=== PATIENT | male | born 1935 | race Caucasian/White ===

== ENCOUNTER 2021-07-16 16:30 | Emergency (ER) | payer MEDICARE, BC, MEDICAID ==
--- NOTE | 2021-07-16 17:03 | EDM.PDOC ---
ED HPI GENERAL MEDICAL PROBLEM - General Chief Complaint: Respiratory Problem Stated Complaint: SOB Time Seen by Provider: 07/16/21 16:53 Source of Information: Reports: Patient, RN Notes Reviewed History Limitations: Reports: No Limitations - History of Present Illness INITIAL COMMENTS - FREE TEXT/NARRATIVE: Patient is an 85-year-old male presenting to the emergency department with complaints of cough and shortness of breath. Reports this morning he developed cough which worsened somewhat throughout the day. After he has coughing episodes, he feels short of breath, however this is not necessarily abnormal for him. He feels like he has been warm today, but has not had documented fever. Denies any vomiting or diarrhea. He has been vaccinated for Covid. He has a history of congestive heart failure and COPD. He was seen at the clinic in [place] prior to coming here and received breathing treatments which he stated did help. They recommend he come here to be tested for Covid. Denies any chest pain. - Related Data Allergies Allergy/AdvReac Type Severity Reaction Status Date / Time Penicillins Allergy Cannot Verified 07/16/21 16:57 Remember Home Meds: Home Meds Aspirin [Halfprin] 81 mg PO DAILY 10/02/18 [History] Cholecalciferol (Vitamin D3) [Vitamin D3] 2,000 mg PO DAILY 10/02/18 [History] Fluticasone/Vilanterol [Breo Ellipta 100-25 MCG Inhalation Kit] 1 puff INH QAM 10/02/18 [History] Furosemide [Lasix] 20 mg PO DAILY 10/02/18 [History] Mometasone Furoate [Nasonex [place]] 2 spray INH DAILY PRN 10/02/18 [History] Montelukast [Singulair] 10 mg PO DAILY 10/02/18 [History] Multivit-Min/FA/Lycopen/Lutein [Centrum Silver Tablet] 1 tab PO DAILY 10/02/18 [History] Omeprazole 20 mg PO DAILY 10/02/18 [History] Pregabalin [Lyrica] 75 mg PO BID 10/02/18 [History] Rivastigmine [Exelon] 1 patch TOP QAM 10/02/18 [History] Sennosides/Docusate Sodium [Senna-Docusate Sodium Tablet] 1 tab PO DAILY 10/02/18 [History] Simvastain 20 mg PO BEDTIME 10/02/18 [History] SitaGLIPtin [Januvia] 100 mg PO DAILY 10/02/18 [History] Tamsulosin HCl 0.4 mg PO DAILY 10/02/18 [History] lisinopriL [Prinivil] 20 mg PO DAILY 10/02/18 [History] metFORMIN [Glucophage] 1,000 mg PO QPM 10/02/18 [History] Acetaminophen 500 mg PO BID 08/29/20 [History] Docusate Sodium [Colace] 100 mg PO BID PRN 08/29/20 [History] Psyllium [Metamucil] 1 dose PO ASDIRECTED 08/29/20 [History] Trospium [Sanctura] 20 mg PO DAILY 08/29/20 [History] Cefdinir 300 mg PO BID #6 capsule 09/01/20 [Rx] Past Medical History HEENT History: Reports: Hard of Hearing, Impaired Vision, Other (See Below) Other HEENT History: left ear surgery Cardiovascular History: Reports: High Cholesterol, Hypertension Respiratory History: Reports: Asthma, COPD, Pneumonia, Recurrent Gastrointestinal History: Reports: Chronic Constipation Genitourinary History: Reports: Prostate Disorder Neurological History: Reports: Alzheimers Disease Psychiatric History: Reports: Dementia Endocrine/Metabolic History: Reports: Diabetes, Type II, Obesity/BMI 30+ Oncologic (Cancer) History: Reports: Prostate Other Oncologic History: with seeds placed - Past Surgical History HEENT Surgical History: Reports: Other (See Below) Other HEENT Surgeries/Procedures: oral surgery Social & Family History - Family History Family Medical History: No Pertinent Family History - Tobacco Use Tobacco Use Status *Q: Never Tobacco User Second Hand Smoke Exposure: No - Caffeine Use Caffeine Use: Reports: Coffee - Recreational Drug Use Recreational Drug Use: No ED ROS GENERAL - Review of Systems Review Of Systems: See Below Constitutional: Reports: Fever. Denies: Chills, Weakness, Fatigue HEENT: Reports: No Symptoms Respiratory: Reports: Shortness of Breath, Cough. Denies: Pleuritic Chest Pain Cardiovascular: Reports: No Symptoms. Denies: Chest Pain Endocrine: Reports: No Symptoms GI/Abdominal: Reports: No Symptoms : Reports: No Symptoms Musculoskeletal: Reports: No Symptoms Skin: Reports: No Symptoms Neurological: Reports: No Symptoms Psychiatric: Reports: No Symptoms Hematologic/Lymphatic: Reports: No Symptoms Immunologic: Reports: No Symptoms ED EXAM, GENERAL - Physical Exam Exam: See Below Exam Limited By: No Limitations General Appearance: Alert, WD/WN, No Apparent Distress Respiratory/Chest: No Respiratory Distress, No Accessory Muscle Use, Chest Non- Tender, Other (Occasional scattered faint expiratory wheeze) Cardiovascular: Normal Peripheral Pulses, Regular Rate, Rhythm, No Edema, No Gallop, No JVD, No Murmur, No Rub GI/Abdominal: Normal Bowel Sounds, Soft, Non-Tender, No Organomegaly, No Dis tention, No Abnormal Bruit, No Mass Neurological: Alert, Oriented, CN II-XII Intact, Normal Cognition, Normal Gait, Normal Reflexes, No Motor/Sensory Deficits Psychiatric: Normal Affect, Normal Mood Skin Exam: Warm, Dry, Intact, Normal Color, No Rash #1 Interpretation EKG Date: 07/16/21 Time: 18:03 Rhythm: NSR Rate (Beats/Min): 62 [place]: Normal P-Wave: Present QRS: Normal QT: Normal [place]/PQ Interval: prolonged DADA Course - Vital Signs Last Recorded V/S: Last Vital Signs Temp 97.5 F 07/16/21 16:53 Pulse 77 07/16/21 16:53 Resp 18 07/16/21 16:53 BP 180/75 H 07/16/21 16:53 Pulse Ox 97 07/16/21 16:53 - Orders/Labs/Meds Orders: Active Orders 24 hr Category Date Time Status Chest 1V Frontal [CR] Stat Exams 07/16/21 17:03 Taken Labs: Laboratory Tests 07/16/21 07/16/21 07/16/21 Range/Units 17:03 17:50 17:50 WBC 6.42 (4.23-9.07) K/mm3 RBC 4.65 (4.63-6.08) M/mm3 Hgb 13.4 L (13.7-17.5) gm/dl Hct 39.8 L (40.1-51.0) % MCV 85.6 (79.0-92.2) fl MCH 28.8 (25.7-32.2) pg MCHC 33.7 (32.2-35.5) g/dl RDW Std Deviation 41.4 (35.1-43.9) fL Plt Count 227 (163-337) K/mm3 MPV 10.6 (9.4-12.3) fl Neut % (Auto) 69.6 H (34.0-67.9) % Lymph % (Auto) 15.7 L (21.8-53.1) % [place] % (Auto) 11.1 (5.3-12.2) % Eos % (Auto) 2.8 (0.8-7.0) Baso % (Auto) 0.3 (0.1-1.2) % Neut # (Auto) 4.47 (1.78-5.38) K/mm3 Lymph # (Auto) 1.01 L (1.32-3.57) K/mm3 [place] # (Auto) 0.71 (0.30-0.82) K/mm3 Eos # (Auto) 0.18 (0.04-0.54) K/mm3 Baso # (Auto) 0.02 (0.01-0.08) K/mm3 Sodium 135 L (136-145) mEq/L Potassium 4.3 (3.5-5.1) mEq/L Chloride 99 (98-107) mEq/L Carbon Dioxide 29 (21-32) mEq/L Anion Gap 11.3 (5-15) BUN 17 (7-18) mg/dL Creatinine 1.3 (0.7-1.3) mg/dL Est Cr Clr Drug Dosing 33.43 mL/min Estimated GFR (MDRD) 52 (>60) mL/min BUN/Creatinine Ratio 13.1 L (14-18) Glucose 178 H (70-99) mg/dL Calcium 9.1 (8.5-10.1) mg/dL Total Bilirubin 0.3 (0.2-1.0) mg/dL AST 9 L (15-37) U/L ALT 24 (16-63) U/L Alkaline Phosphatase 47 (46-116) U/L Troponin I (0.00-0.056) ng/mL C-Reactive Protein <0.2 (<1.0) mg/dL NT-Pro-B Natriuret Pep (0-450) pg/mL Total Protein 6.7 (6.4-8.2) g/dl Albumin 3.5 (3.4-5.0) g/dl Globulin 3.2 gm/dL Albumin/Globulin Ratio 1.1 (1-2) SARS-CoV-2 RNA ([facility]) Negative (NEGATIVE) 07/16/21 07/16/21 Range/Units 17:50 17:50 WBC (4.23-9.07) K/mm3 RBC (4.63-6.08) M/mm3 Hgb (13.7-17.5) gm/dl Hct (40.1-51.0) % MCV (79.0-92.2) fl MCH (25.7-32.2) pg MCHC (32.2-35.5) g/dl RDW Std Deviation (35.1-43.9) fL Plt Count (163-337) K/mm3 MPV (9.4-12.3) fl Neut % (Auto) (34.0-67.9) % Lymph % (Auto) (21.8-53.1) % [place] % (Auto) (5.3-12.2) % Eos % (Auto) (0.8-7.0) Baso % (Auto) (0.1-1.2) % Neut # (Auto) (1.78-5.38) K/mm3 Lymph # (Auto) (1.32-3.57) K/mm3 [place] # (Auto) (0.30-0.82) K/mm3 Eos # (Auto) (0.04-0.54) K/mm3 Baso # (Auto) (0.01-0.08) K/mm3 Sodium (136-145) mEq/L Potassium (3.5-5.1) mEq/L Chloride (98-107) mEq/L Carbon Dioxide (21-32) mEq/L Anion Gap (5-15) BUN (7-18) mg/dL Creatinine (0.7-1.3) mg/dL Est Cr Clr Drug Dosing mL/min Estimated GFR (MDRD) (>60) mL/min BUN/Creatinine Ratio (14-18) Glucose (70-99) mg/dL Calcium (8.5-10.1) mg/dL Total Bilirubin (0.2-1.0) mg/dL AST (15-37) U/L ALT (16-63) U/L Alkaline Phosphatase (46-116) U/L Troponin I < 0.017 (0.00-0.056) ng/mL C-Reactive Protein (<1.0) mg/dL NT-Pro-B Natriuret Pep 104 (0-450) pg/mL Total Protein (6.4-8.2) g/dl Albumin (3.4-5.0) g/dl Globulin gm/dL Albumin/Globulin Ratio (1-2) SARS-CoV-2 RNA ([facility]) (NEGATIVE) - Re-Assessments/Exams Free Text/Narrative Re-Assessment/Exam: 07/16/21 19:00 Hematology is unremarkable. Chest x-ray shows no acute abnormalities. Covid is negative. Patient is oxygenating upper 90s on room air. EKG shows normal sinus rhythm at 62 with no acute abnormalities. He states that he is feeling well at this time. We will discharge him home. Discharge instructions as documented. Departure - Departure Time of Disposition: 19:01 Disposition: Home, Self-Care 01 Condition: Good Clinical Impression: Shortness of breath - Discharge Information *PRESCRIPTION DRUG MONITORING PROGRAM REVIEWED*: No *COPY OF PRESCRIPTION DRUG MONITORING REPORT IN PATIENT NNAO: No Instructions: Shortness of Breath, Adult, [id number] Referrals: Neo kSy MD [Primary Care Provider] - Forms: ED Department Discharge Additional Instructions: You were seen in the emergency department today for cough and shortness of breath. Work-up included blood work, EKG, chest x-ray, and Covid test. Results of your work-up were found to be normal. You are likely suffering from viral illness. Recommend that you continue to use breathing treatments as needed. Take your medications as previously prescribed. If you experience any new or worsening symptoms of concern, please not hesitate to return to the emergency department for reevaluation. Sepsis Event Note (ED) - Focused Exam Vital Signs: Vital Signs Temp Pulse Resp BP Pulse Ox 07/16/21 16:53 97.5 F 77 18 180/75 H 97 - My Orders Last 24 Hours: My Active Orders 07/16/21 17:03 Chest 1V Frontal [CR] Stat - Assessment/Plan Last 24 Hours: My Active Orders 07/16/21 17:03 Chest 1V Frontal [CR] Stat
--- NOTE | 2021-07-17 07:41 | CR ---
Chest: Portable view of the chest was obtained. Comparison: Prior chest x-ray of 03/25/16. Heart size and mediastinum are within normal limits. Slight scarring is seen within the left lung base. Lungs otherwise are clear. Bony structures show nothing acute. Impression: 1. Nothing acute is seen on portable chest x-ray. Diagnostic code #1
== END 2021-07-16 20:02 | disposition home or self-care (01) ==
LOC: JD.ED 16:30
DX: R06.02 Shortness of breath (principal); E78.00 Pure hypercholesterolemia, unspecified; I10 Essential (primary) hypertension; J44.9 Chronic obstructive pulmonary disease, unspecified; E11.9 Type 2 diabetes mellitus without complications; E66.9 Obesity, unspecified; Z88.0 Allergy status to penicillin; Z79.82 Long term (current) use of aspirin; Z79.899 Other long term (current) drug therapy; Z20.822 Contact with and (suspected) exposure to COVID-19; Z68.43 Body mass index [BMI] 50.0-59.9, adult
CPT/HCPCS: 36415; 71045; 80053; 83880; 84484; 85025; 86140; 93005; 99285; U0002

== ENCOUNTER 2022-08-04 18:42 | Emergency (ER) | payer MEDICARE, BC, MEDICAID ==
[2022-08-04 20:41] LABS: ESTIMATED GFR 73 mL/min (>60)
[2022-08-04 20:58] LABS: CORONAVIRUS COVID-19 NAA NEGATIVE (NEGATIVE)
[2022-08-04] MEDS ORDERED: Ondansetron 4 MG/2 ML SDV IVPUSH ONE (21:58)
[2022-08-04] MEDS ORDERED: Sodium Chloride 0.9% 1,000 ML IV SCH (22:00)
[2022-08-04] MEDS ORDERED: Iopamidol 612 MG/ML 100 ML Bottle IVPUSH ONE (22:36)
== END 2022-08-05 00:53 | disposition home or self-care (01) ==
LOC: JD.ED 18:42
DX: R42 Dizziness and giddiness (principal); R10.9 Unspecified abdominal pain; R11.0 Nausea; E78.00 Pure hypercholesterolemia, unspecified; I10 Essential (primary) hypertension; E11.9 Type 2 diabetes mellitus without complications; Z79.899 Other long term (current) drug therapy; Z20.822 Contact with and (suspected) exposure to COVID-19
CPT/HCPCS: 0240U; 36415; 74177; 80053; 81001; 83735; 84443; 84484; 85025; 85379; 93005; 96361; 96374; 99284; J2405; J7030; Q9967

== ENCOUNTER 2024-06-14 13:19 | Inpatient (IN) | payer MEDICARE, BC, MEDICAID ==
[2024-06-14] MEDS ORDERED: Sodium Chloride 0.9% 10 ML Syringe FLUSH PRN (14:03)
[2024-06-14 14:43] LABS: BASOPHILS PERCENT AUTO 0.3 % (0.0-1.0); EOSINOPHILS ABSOLUTE AUTO 0.1 K/mm3 (0.0-0.4); HEMATOCRIT 35.2 % (42.0-52.0); HEMOGLOBIN 11.5 gm/dl (14.0-18.0); IMMATURE GRAN ABSOLUTE AUTO 0.03 K/mm3 (0.00-0.05); IMMATURE GRAN PERCENT AUTO 0.3 % (0.0-0.4); LYMPHOCYTES ABSOLUTE AUTO 1.3 K/mm3 (1.0-4.8); LYMPHOCYTES PERCENT AUTO 11.5 % (24.0-44.0); MEAN CORPUSCULAR HEMOGLOBIN 27.9 pg (28.0-32.0); MEAN CORPUSCULAR HGB CONC 32.7 g/dl (32.0-36.0); MEAN CORPUSCULAR VOLUME 85.4 fl (83.0-99.0); MEAN PLATELET VOLUME 11.6 fl (9.4-12.4); MONOCYTES ABSOLUTE AUTO 1.5 K/mm3 (0.0-0.8); MONOCYTES PERCENT AUTO 13.7 % (0.0-8.0); NEUTROPHILS ABSOLUTE AUTO 8.2 K/mm3 (1.8-7.7); NEUTROPHILS PERCENT AUTO 73.2 % (41.0-71.0); PLATELET COUNT,PLT 198 K/mm3 (150-400); RED BLOOD CELL COUNT 4.12 M/mm3 (4.52-5.90); WHITE BLOOD CELL COUNT,WBC 11.14 K/mm3 (3.9-11.3)
[2024-06-14 15:07] LABS: SLIDE REVIEW ABNORMAL SMEAR
[2024-06-14 15:12] LABS: LACTIC ACID 2.2 mmol/L (0.4-2.0)
[2024-06-14] MEDS: Albuterol/Ipratropium 3.0-0.5 MG/3 ML Neb Soln NEB ONE (15:12)
[2024-06-14] MEDS ORDERED: Sodium Chloride 0.9% 1,000 ML IV SCH (15:15)
[2024-06-14 15:16] LABS: A/G RATIO 0.8 (1-2); ALANINE AMINOTRANSFERASE,ALT 23 U/L (16-63); ALBUMIN 3.2 g/dl (3.4-5.0); ALKALINE PHOSPHATASE 59 U/L (46-116); ANION GAP 15.5 (5-15); ASPARTATE AMNIOTRANSFERASE,AST 14 U/L (15-37); BILIRUBIN TOTAL 0.5 mg/dL (0.2-1.0); BLOOD UREA NITROGEN,BUN 83 mg/dL (7-18); BUN/CREATININE RATIO 22.4 (14-18); CALCIUM 9.5 mg/dL (8.5-10.1); CARBON DIOXIDE,CO2 25 mEq/L (21-32); CHLORIDE,CL 100 mEq/L (98-107); CREATININE 3.7 mg/dL (0.7-1.3); EST CRCL DRUG DOSING (CG) 11.11 mL/min; ESTIMATED GFR 15 mL/min (>60); GLUCOSE RANDOM 141 mg/dL (70-99); POTASSIUM,K 4.5 mEq/L (3.5-5.1); SODIUM,NA 136 mEq/L (136-145)
[2024-06-14 15:23] LABS: C-REACTIVE PROTEIN > 25.00 mg/dL (<0.30)
[2024-06-14] MEDS: cefTRIAXone 2 GM in Sodium Chloride 0.9% 100 ML IV ONE (16:22)
[2024-06-14] MEDS ORDERED: Ondansetron 4 MG/2 ML SDV IV PRN (17:10)
[2024-06-14] MEDS ORDERED: oxyCODONE 5 MG Tab PO PRN (17:10)
[2024-06-14] MEDS ORDERED: Morphine 2 MG/ML SYRINGE IVPUSH PRN (17:10)
[2024-06-14] MEDS ORDERED: Naloxone 0.4 MG/ML SDV IVPUSH PRN (17:10)
[2024-06-14] MEDS ORDERED: Sennosides/Docusate Sodium 50-8.6 MG Tab PO PRN (17:10)
[2024-06-14] MEDS ORDERED: 50% Dextrose in Water 50 ML Syringe IVPUSH PRN (17:17)
[2024-06-14] MEDS: Sodium Chloride 0.9% 500 ML IV ONE (17:31)
[2024-06-14] MEDS: metroNIDAZOLE/Normal Saline 500 MG in Premix Bag 1 BAG IV SCH (18:07)
[2024-06-14] MEDS: Insulin Lispro 100 Unit/ML 3 ML KwikPen SUBCUT SCH (18:14)
[2024-06-14] MEDS: Lactated Ringers 1,000 ML IV SCH (18:23)
[2024-06-14] MEDS: Famotidine 20 MG/2 ML SDV IVPUSH SCH (22:39)
[2024-06-14] MEDS: Heparin Sodium 5,000 Units/ML Vial SUBCUT SCH (22:39)
[2024-06-15 04:50] LABS: BASOPHILS PERCENT AUTO 0.4 % (0.0-1.0); EOSINOPHILS ABSOLUTE AUTO 0.2 K/mm3 (0.0-0.4); EOSINOPHILS PERCENT AUTO 2.1 % (0.0-6.0); HEMATOCRIT 30.1 % (42.0-52.0); HEMOGLOBIN 9.9 gm/dl (14.0-18.0); IMMATURE GRAN ABSOLUTE AUTO 0.03 K/mm3 (0.00-0.05); IMMATURE GRAN PERCENT AUTO 0.4 % (0.0-0.4); LYMPHOCYTES PERCENT AUTO 12.4 % (24.0-44.0); MEAN CORPUSCULAR HEMOGLOBIN 27.7 pg (28.0-32.0); MEAN CORPUSCULAR HGB CONC 32.9 g/dl (32.0-36.0); MEAN CORPUSCULAR VOLUME 84.1 fl (83.0-99.0); MEAN PLATELET VOLUME 11.8 fl (9.4-12.4); MONOCYTES ABSOLUTE AUTO 1.2 K/mm3 (0.0-0.8); MONOCYTES PERCENT AUTO 14.6 % (0.0-8.0); NEUTROPHILS ABSOLUTE AUTO 5.8 K/mm3 (1.8-7.7); NEUTROPHILS PERCENT AUTO 70.1 % (41.0-71.0); PLATELET COUNT,PLT 186 K/mm3 (150-400); RED BLOOD CELL COUNT 3.58 M/mm3 (4.52-5.90); WHITE BLOOD CELL COUNT,WBC 8.23 K/mm3 (3.9-11.3)
[2024-06-15 05:18] LABS: A/G RATIO 0.8 (1-2); ALBUMIN 2.5 g/dl (3.4-5.0); ANION GAP 18.4 (5-15); BILIRUBIN TOTAL 0.4 mg/dL (0.2-1.0); BUN/CREATININE RATIO 23.9 (14-18); CALCIUM 8.6 mg/dL (8.5-10.1); CREATININE 3.3 mg/dL (0.7-1.3); EST CRCL DRUG DOSING (CG) 11.95 mL/min; MAGNESIUM 1.7 mg/dL (1.8-2.4); PHOSPHORUS 4.8 mg/dL (2.6-4.7); POTASSIUM,K 4.4 mEq/L (3.5-5.1); PROTEIN TOTAL,TP 5.7 g/dl (6.4-8.2)
[2024-06-15] MEDS: Magnesium Sulfate/Water 4 GM in Premix Bag 1 BAG IV ONE (11:08)
[2024-06-15] MEDS: cefTRIAXone 2 GM in Sodium Chloride 0.9% 100 ML IV SCH (15:37)
[2024-06-15] MEDS ORDERED: Psyllium Husk Powder Sugar Free 5.85 GM Packet PO PRN (19:45)
[2024-06-15] MEDS ORDERED: Albuterol 0.083% 2.5 MG/3 ML Neb Soln INH PRN (19:45)
[2024-06-15] MEDS ORDERED: Nystatin Topical Powder 15 GM Bottle TOP SCH (19:45)
[2024-06-15] MEDS ORDERED: Calcium Carbonate 500 MG Tab.Chew PO PRN (19:45)
[2024-06-15] MEDS ORDERED: Non-Formulary Medication 1 Each (Saliva Substitute Combo No.9 [Biotene] 1,000 ML Mouthwash PO PRN (19:45)
[2024-06-15] MEDS ORDERED: cefTRIAXone 2 GM in Sodium Chloride 0.9% 100 ML IV SCH (20:00)
[2024-06-15] MEDS: Montelukast 10 MG Tab PO SCH (20:11)
[2024-06-15] MEDS: atorvaSTATin 20 MG Tab PO SCH (20:11)
[2024-06-15] MEDS: Carboxymethylcellulose Sodium 1% Ophth Gel 15 ML Bottle EYEBOTH SCH (20:18)
[2024-06-16] MEDS: cefTRIAXone 2 GM in Sodium Chloride 0.9% 100 ML IV SCH ×2 (00:23→14:55)
[2024-06-16] MEDS: Acetaminophen 325 MG Tab PO PRN (03:25)
[2024-06-16 05:34] LABS: HEMATOCRIT 33.8 % (42.0-52.0); HEMOGLOBIN 11.2 gm/dl (14.0-18.0); MEAN CORPUSCULAR HEMOGLOBIN 27.9 pg (28.0-32.0); MEAN CORPUSCULAR HGB CONC 33.1 g/dl (32.0-36.0); MEAN CORPUSCULAR VOLUME 84.1 fl (83.0-99.0); MEAN PLATELET VOLUME 11.4 fl (9.4-12.4); PLATELET COUNT,PLT 210 K/mm3 (150-400); RED BLOOD CELL COUNT 4.02 M/mm3 (4.52-5.90); WHITE BLOOD CELL COUNT,WBC 8.29 K/mm3 (3.9-11.3)
[2024-06-16 05:51] LABS: ANION GAP 16.1 (5-15); BUN/CREATININE RATIO 22.5 (14-18); CREATININE 2.4 mg/dL (0.7-1.3); EST CRCL DRUG DOSING (CG) 16.43 mL/min; MAGNESIUM 2.7 mg/dL (1.8-2.4); POTASSIUM,K 4.1 mEq/L (3.5-5.1)
[2024-06-16] MEDS: Benzonatate 100 MG Cap PO PRN (07:58)
[2024-06-16] MEDS: Multivitamins with Minerals/Folic Acid/Lutein/Zeaxanth Tab PO SCH (08:00)
[2024-06-16] MEDS: Aspirin 81 MG Tab.EC PO SCH (08:00)
[2024-06-16] MEDS: Cholecalciferol (Vitamin D3) 25 MCG Tab PO SCH (08:04)
[2024-06-16] MEDS ORDERED: RIVASTIGMINE TD SCH (09:00)
[2024-06-16] MEDS: Formoterol/Mometasone 100-5 MCG 8.8 GM Inhaler IH SCH (09:03)
[2024-06-16] MEDS: Lisinopril 20 MG Tab PO SCH (11:34)
[2024-06-17 05:57] LABS: ANION GAP 13.7 (5-15); BUN/CREATININE RATIO 20.6 (14-18); CALCIUM 8.9 mg/dL (8.5-10.1); CREATININE 1.8 mg/dL (0.7-1.3); EST CRCL DRUG DOSING (CG) 21.91 mL/min; POTASSIUM,K 3.7 mEq/L (3.5-5.1)
[2024-06-17 09:23] LABS: APPEARANCE,URINE CLEAR (Clear); BILIRUBIN,URINE NEGATIVE (Negative); COLOR,URINE YELLOW (Yellow); GLUCOSE,URINE NEGATIVE (Negative); KETONES,URINE 1+ (Negative); LEUKOCYTE ESTERASE,URINE NEGATIVE (Negative); NITRITE,URINE NEGATIVE (Negative); OCCULT BLOOD,URINE NEGATIVE (Negative); PROTEIN,URINE 1+ (Negative); UROBILINOGEN,URINE 0.2 (0.2-1.0)
[2024-06-17] MEDS ORDERED: Furosemide 20 MG Tab PO SCH (10:00)
[2024-06-17 10:12] LABS: BACTERIA,URINE FEW /hpf (FEW); MUCUS,URINE FEW /hpf (FEW); RBC,URINE 0-5 /hpf (0-5); SQUAMOUS EPITHELIAL CELLS,UR 0-5 /hpf (0-5); WBC,URINE 0-5 /hpf (0-5)
[2024-06-17] MEDS ORDERED: Labetalol 100 MG/20 ML MDV IVPUSH PRN (14:22)
[2024-06-17] MEDS: Furosemide 40 MG Tab PO SCH (14:38)
[2024-06-17] MEDS: Potassium Chloride 20 MEQ Tab.ER PO ONE (14:38)
[2024-06-17] MEDS: hydrALAZINE 20 MG/ML SDV IVPUSH PRN (15:46)
[2024-06-17] MEDS ORDERED: Carboxymethylcellulose Sodium 1% Ophth Gel 15 ML Bottle EYEBOTH PRN (17:36)
[2024-06-17] MEDS: Melatonin 3 MG Tab PO PRN (22:11)
[2024-06-18 05:48] LABS: ANION GAP 16.6 (5-15); BUN/CREATININE RATIO 18.8 (14-18); CALCIUM 8.9 mg/dL (8.5-10.1); CREATININE 1.7 mg/dL (0.7-1.3); EST CRCL DRUG DOSING (CG) 23.2 mL/min; MAGNESIUM 2.1 mg/dL (1.8-2.4); POTASSIUM,K 3.6 mEq/L (3.5-5.1)
[2024-06-18] MEDS: Potassium Chloride 20 MEQ Tab.ER PO ONE (10:48)
[2024-06-18] MEDS: Empagliflozin 10 MG Tab PO SCH (10:48)
[2024-06-18] MEDS: Lisinopril 20 MG Tab PO STA (11:44)
[2024-06-18] MEDS: Nystatin Susp 100,000 Unit/ML 5 ML UD Cup PO SCH (12:22)
[2024-06-19 05:00] LABS: ANION GAP 19.9 (5-15); BUN/CREATININE RATIO 20.6 (14-18); CALCIUM 8.5 mg/dL (8.5-10.1); CREATININE 1.7 mg/dL (0.7-1.3); EST CRCL DRUG DOSING (CG) 23.2 mL/min; POTASSIUM,K 3.9 mEq/L (3.5-5.1)
[2024-06-19] MEDS: Dextrose 5% in Water 1,000 ML IV SCH (07:47)
[2024-06-19] MEDS: Lisinopril 20 MG Tab PO SCH (07:59)
[2024-06-19] MEDS: amLODIPine 5 MG Tab PO SCH (08:00)
[2024-06-19] MEDS: Formoterol/Mometasone 100-5 MCG 8.8 GM Inhaler IH SCH ×2 (08:10→20:47)
[2024-06-19] MEDS: Hydrochlorothiazide 12.5 MG Cap PO SCH (11:30)
[2024-06-19 11:38] LABS: ANION GAP 19.9 (5-15); BUN/CREATININE RATIO 21.1 (14-18); CALCIUM 9.4 mg/dL (8.5-10.1); CREATININE 1.8 mg/dL (0.7-1.3); EST CRCL DRUG DOSING (CG) 21.91 mL/min; POTASSIUM,K 3.9 mEq/L (3.5-5.1)
[2024-06-19 11:49] LABS: CREATININE,URINE RAND 85.8 mg/dL (30.0-125.0)
[2024-06-19 17:15] LABS: ANION GAP 14.5 (5-15); BUN/CREATININE RATIO 20.6 (14-18); CALCIUM 8.8 mg/dL (8.5-10.1); CREATININE 1.7 mg/dL (0.7-1.3); EST CRCL DRUG DOSING (CG) 23.2 mL/min; POTASSIUM,K 3.5 mEq/L (3.5-5.1)
[2024-06-19] MEDS: Hydrochlorothiazide 12.5 MG Cap PO ONE (17:16)
[2024-06-20 05:29] LABS: ANION GAP 16.1 (5-15); BUN/CREATININE RATIO 19.4 (14-18); CALCIUM 8.3 mg/dL (8.5-10.1); CREATININE 1.6 mg/dL (0.7-1.3); EST CRCL DRUG DOSING (CG) 24.65 mL/min; POTASSIUM,K 3.1 mEq/L (3.5-5.1)
[2024-06-20] MEDS: Hydrochlorothiazide 12.5 MG Cap PO SCH (08:25)
[2024-06-20 08:56] LABS: ANION GAP 14.1 (5-15); CALCIUM 8.6 mg/dL (8.5-10.1); CREATININE 1.5 mg/dL (0.7-1.3); EST CRCL DRUG DOSING (CG) 26.29 mL/min; POTASSIUM,K 3.1 mEq/L (3.5-5.1)
[2024-06-20] MEDS: Dextrose 5% in Water 1,000 ML IV SCH (09:29)
[2024-06-20 12:55] LABS: ANION GAP 13.5 (5-15); BUN/CREATININE RATIO 18.7 (14-18); CALCIUM 8.6 mg/dL (8.5-10.1); CREATININE 1.5 mg/dL (0.7-1.3); EST CRCL DRUG DOSING (CG) 26.29 mL/min; POTASSIUM,K 3.5 mEq/L (3.5-5.1)
[2024-06-20 17:18] LABS: ANION GAP 14.1 (5-15); BUN/CREATININE RATIO 16.7 (14-18); CALCIUM 8.3 mg/dL (8.5-10.1); CREATININE 1.5 mg/dL (0.7-1.3); EST CRCL DRUG DOSING (CG) 26.29 mL/min; POTASSIUM,K 3.1 mEq/L (3.5-5.1)
[2024-06-20] MEDS: Potassium Chloride 20 MEQ Tab.ER PO SCH (18:27)
[2024-06-20] MEDS: guaiFENesin 600 MG Tab.ER PO SCH (21:32)
[2024-06-21] MEDS: Dextrose 5% in Water 1,000 ML IV SCH (02:45)
[2024-06-21 06:02] LABS: ANION GAP 14.4 (5-15); BUN/CREATININE RATIO 16.2 (14-18); CREATININE 1.3 mg/dL (0.7-1.3); EST CRCL DRUG DOSING (CG) 30.33 mL/min; POTASSIUM,K 3.4 mEq/L (3.5-5.1)
[2024-06-21] MEDS: Potassium Chloride 20 MEQ Tab.ER PO ONE (08:58)
== END 2024-06-21 12:02 | disposition home or self-care (01) | DRG 177 ==
LOC: JD.ED 13:19 → JD.MS 17:03
PROVIDERS: ADMIT Student in an Organized Health Care Education/Training Program; ATTEND Student in an Organized Health Care Education/Training Program
DX: A41.9 Sepsis, unspecified organism (principal); R65.20 Severe sepsis without septic shock; J69.0 Pneumonitis due to inhalation of food and vomit; J96.01 Acute respiratory failure with hypoxia; I11.0 Hypertensive heart disease with heart failure; N17.9 Acute kidney failure, unspecified; F03.90 Unspecified dementia, unspecified severity, without behavioral disturbance, psychotic disturbance, mood disturbance, and anxiety; J44.0 Chronic obstructive pulmonary disease with (acute) lower respiratory infection; E11.9 Type 2 diabetes mellitus without complications; G93.49 Other encephalopathy; B37.0 Candidal stomatitis; E87.1 Hypo-osmolality and hyponatremia; I13.0 Hypertensive heart and chronic kidney disease with heart failure and stage 1 through stage 4 chronic kidney disease, or unspecified chronic kidney disease; E87.20 Acidosis, unspecified; Z66 Do not resuscitate; K21.00 Gastro-esophageal reflux disease with esophagitis, without bleeding; M41.9 Scoliosis, unspecified; N40.0 Benign prostatic hyperplasia without lower urinary tract symptoms; I50.9 Heart failure, unspecified; E11.42 Type 2 diabetes mellitus with diabetic polyneuropathy; E11.51 Type 2 diabetes mellitus with diabetic peripheral angiopathy without gangrene; H91.90 Unspecified hearing loss, unspecified ear; H54.7 Unspecified visual loss; E78.00 Pure hypercholesterolemia, unspecified; K59.09 Other constipation; G30.9 Alzheimer's disease, unspecified; F02.80 Dementia in other diseases classified elsewhere, unspecified severity, without behavioral disturbance, psychotic disturbance, mood disturbance, and anxiety; R13.10 Dysphagia, unspecified; I44.0 Atrioventricular block, first degree; E86.0 Dehydration; N18.9 Chronic kidney disease, unspecified; E11.22 Type 2 diabetes mellitus with diabetic chronic kidney disease; H53.2 Diplopia; R29.898 Other symptoms and signs involving the musculoskeletal system; I27.20 Pulmonary hypertension, unspecified; Z88.0 Allergy status to penicillin; Z85.46 Personal history of malignant neoplasm of prostate; Z79.82 Long term (current) use of aspirin; Z79.899 Other long term (current) drug therapy; Z79.84 Long term (current) use of oral hypoglycemic drugs; Z86.16 Personal history of COVID-19; Z98.890 Other specified postprocedural states
CPT/HCPCS: 36415; 70450; 71045; 80053; 83605; 83880; 85025; 86140; 87040 ×2; 93005; 93880; 96365; 99285; J0696; J3490; U0002; 70551; 70551-26; 80048; 81001; 82570; 82947; 83735; 83930; 83935; 84100; 84300; 84443; 84540; 85027; 87641; 92610-GN; 93010; 93306; 94640; 94760; 94761; 97110-GP; 97161-GP; 99222; 99232; 99238; A9270-GY; J0360; J1644; J1836; J3475; J7030; J7060; J7120; J7620-GY

== ENCOUNTER 2024-10-26 10:38 | Inpatient (IN) | payer MEDICARE, BC, MEDICAID ==
[2024-10-26] MEDS: Sodium Chloride 0.9% 1,000 ML IV STA ×3 (11:04→19:09)
[2024-10-26 11:18] LABS: HEMATOCRIT 38.3 % (42.0-52.0); HEMOGLOBIN 12.1 gm/dl (14.0-18.0); MEAN CORPUSCULAR HEMOGLOBIN 26.3 pg (28.0-32.0); MEAN CORPUSCULAR HGB CONC 31.6 g/dl (32.0-36.0); MEAN CORPUSCULAR VOLUME 83.3 fl (83.0-99.0); MEAN PLATELET VOLUME 11.3 fl (9.4-12.4); PLATELET COUNT,PLT 201 K/mm3 (150-400); WHITE BLOOD CELL COUNT,WBC 12.46 K/mm3 (3.9-11.3)
[2024-10-26 11:42] LABS: INR 1.03; PROTHROMBIN TIME 10.9 SECONDS (9.7-12.0)
[2024-10-26 11:52] LABS: LACTIC ACID 5.8 mmol/L (0.4-2.0)
[2024-10-26 11:56] LABS: ALBUMIN 3.4 g/dl (3.4-5.0); ANION GAP 23.4 (5-15); BILIRUBIN TOTAL 0.3 mg/dL (0.2-1.0); BUN/CREATININE RATIO 22.4 (14-18); C-REACTIVE PROTEIN 0.12 mg/dL (<0.30); CALCIUM 9.1 mg/dL (8.5-10.1); CREATININE 2.1 mg/dL (0.7-1.3); EST CRCL DRUG DOSING (CG) 18.78 mL/min; POTASSIUM,K 4.4 mEq/L (3.5-5.1); PROTEIN TOTAL,TP 6.9 g/dl (6.4-8.2)
[2024-10-26 12:24] LABS: BAND PERCENT MAN 3 % (0-10); BASOPHILS PERCENT MAN 0 (0.2-1.2); EOSINOPHILS PERCENT MAN 1 % (0.8-7.0); LYMPHOCYTES % ATYPICAL MANUAL 0 %; LYMPHOCYTES PERCENT MAN 9 % (20-40); MONOCYTES PERCENT MAN 1 % (2-10)
[2024-10-26 12:25] LABS: ANISOCYTOSIS 1+ SLIGHT; PLATELET COUNT ESTIMATE ADEQUATE; TEARDROP CELLS 1+ SLIGHT
[2024-10-26] MEDS ORDERED: cefTRIAXone 2 GM in Sodium Chloride 0.9% 100 ML IV ONE (12:39)
[2024-10-26 12:57] LABS: APPEARANCE,URINE CLEAR (Clear); BILIRUBIN,URINE NEGATIVE (Negative); COLOR,URINE YELLOW (Yellow); GLUCOSE,URINE 2+ (Negative); KETONES,URINE NEGATIVE (Negative); LEUKOCYTE ESTERASE,URINE NEGATIVE (Negative); NITRITE,URINE NEGATIVE (Negative); OCCULT BLOOD,URINE NEGATIVE (Negative); PH,URINE 5.5 (5.0-8.0); PROTEIN,URINE NEGATIVE (Negative); UROBILINOGEN,URINE 0.2 (0.2-1.0)
[2024-10-26] MEDS: cefTRIAXone 2 GM Vial IV ONE (13:21)
[2024-10-26] MEDS: Sodium Chloride 0.9% 500 ML IV STA (13:23)
[2024-10-26] MEDS: Sodium Chloride 0.9% 10 ML Syringe FLUSH PRN (13:27)
[2024-10-26] MEDS ORDERED: Acetaminophen 325 MG Tab PO PRN (15:13)
[2024-10-26] MEDS: Heparin Sodium 5,000 Units/ML Vial SUBCUT SCH (16:29)
[2024-10-26] MEDS: guaiFENesin 600 MG Tab.ER PO SCH (20:00)
[2024-10-26] MEDS: Docusate Sodium 100 MG Cap PO SCH (20:00)
[2024-10-26] MEDS: traMADol 50 MG Tab PO SCH (20:00)
[2024-10-27 05:35] LABS: BASOPHILS PERCENT AUTO 0.5 % (0.0-1.0); EOSINOPHILS ABSOLUTE AUTO 0.2 K/mm3 (0.0-0.4); EOSINOPHILS PERCENT AUTO 2.6 % (0.0-6.0); HEMATOCRIT 33.4 % (42.0-52.0); HEMOGLOBIN 10.7 gm/dl (14.0-18.0); IMMATURE GRAN ABSOLUTE AUTO 0.06 K/mm3 (0.00-0.05); LYMPHOCYTES ABSOLUTE AUTO 1.2 K/mm3 (1.0-4.8); LYMPHOCYTES PERCENT AUTO 18.7 % (24.0-44.0); MEAN CORPUSCULAR HEMOGLOBIN 26.5 pg (28.0-32.0); MEAN CORPUSCULAR VOLUME 82.7 fl (83.0-99.0); MEAN PLATELET VOLUME 11.7 fl (9.4-12.4); MONOCYTES ABSOLUTE AUTO 0.6 K/mm3 (0.0-0.8); MONOCYTES PERCENT AUTO 10.1 % (0.0-8.0); NEUTROPHILS ABSOLUTE AUTO 4.2 K/mm3 (1.8-7.7); NEUTROPHILS PERCENT AUTO 67.1 % (41.0-71.0); PLATELET COUNT,PLT 191 K/mm3 (150-400); RED BLOOD CELL COUNT 4.04 M/mm3 (4.52-5.90); WHITE BLOOD CELL COUNT,WBC 6.21 K/mm3 (3.9-11.3)
[2024-10-27 05:38] LABS: A/G RATIO 0.9 (1-2); ALBUMIN 2.6 g/dl (3.4-5.0); ANION GAP 15.9 (5-15); BILIRUBIN TOTAL 0.2 mg/dL (0.2-1.0); CALCIUM 8.4 mg/dL (8.5-10.1); CREATININE 1.5 mg/dL (0.7-1.3); EST CRCL DRUG DOSING (CG) 26.29 mL/min; POTASSIUM,K 3.9 mEq/L (3.5-5.1); PROTEIN TOTAL,TP 5.5 g/dl (6.4-8.2)
[2024-10-27] MEDS: Polyethylene Glycol 3350 Powder 17 GM Packet PO PRN (08:17)
[2024-10-27] MEDS: Aspirin 81 MG Tab.EC PO SCH (08:17)
[2024-10-27] MEDS: Albuterol 0.083% 2.5 MG/3 ML Neb Soln NEB PRN (09:26)
[2024-10-27] MEDS ORDERED: 50% Dextrose in Water 50 ML Syringe IVPUSH PRN (09:42)
[2024-10-27] MEDS: Lactoperoxi/Gluc Oxid/Pot Thio 42 GM Tube MUCMEM PRN (10:31)
[2024-10-27] MEDS: Insulin Lispro 100 Unit/ML 3 ML KwikPen SUBCUT SCH (11:33)
[2024-10-27] MEDS: cefTRIAXone 2 GM Vial IVPUSH SCH (11:34)
[2024-10-27] MEDS: Pregabalin 75 MG Cap PO SCH (14:04)
[2024-10-27] MEDS: Lisinopril 20 MG Tab PO SCH (16:37)
[2024-10-27] MEDS: Tamsulosin 0.4 MG Cap.ER PO SCH (17:15)
[2024-10-27] MEDS: atorvaSTATin 20 MG Tab PO SCH (17:15)
[2024-10-27] MEDS: Montelukast 10 MG Tab PO SCH (17:16)
[2024-10-27] MEDS: Formoterol/Mometasone 100-5 MCG 8.8 GM Inhaler INH SCH (20:13)
[2024-10-28 05:31] LABS: BASOPHILS ABSOLUTE AUTO 0.1 K/mm3 (0.0-0.2); BASOPHILS PERCENT AUTO 0.5 % (0.0-1.0); EOSINOPHILS ABSOLUTE AUTO 0.4 K/mm3 (0.0-0.4); EOSINOPHILS PERCENT AUTO 3.6 % (0.0-6.0); HEMATOCRIT 36.8 % (42.0-52.0); HEMOGLOBIN 11.9 gm/dl (14.0-18.0); IMMATURE GRAN ABSOLUTE AUTO 0.05 K/mm3 (0.00-0.05); IMMATURE GRAN PERCENT AUTO 0.5 % (0.0-0.4); LYMPHOCYTES ABSOLUTE AUTO 1.1 K/mm3 (1.0-4.8); LYMPHOCYTES PERCENT AUTO 11.1 % (24.0-44.0); MEAN CORPUSCULAR HEMOGLOBIN 26.3 pg (28.0-32.0); MEAN CORPUSCULAR HGB CONC 32.3 g/dl (32.0-36.0); MEAN CORPUSCULAR VOLUME 81.4 fl (83.0-99.0); MEAN PLATELET VOLUME 11.3 fl (9.4-12.4); MONOCYTES ABSOLUTE AUTO 0.8 K/mm3 (0.0-0.8); MONOCYTES PERCENT AUTO 8.5 % (0.0-8.0); NEUTROPHILS ABSOLUTE AUTO 7.3 K/mm3 (1.8-7.7); NEUTROPHILS PERCENT AUTO 75.8 % (41.0-71.0); PLATELET COUNT,PLT 201 K/mm3 (150-400); RED BLOOD CELL COUNT 4.52 M/mm3 (4.52-5.90)
[2024-10-28 05:44] LABS: A/G RATIO 0.9 (1-2); ALBUMIN 2.8 g/dl (3.4-5.0); ANION GAP 16.1 (5-15); BILIRUBIN TOTAL 0.2 mg/dL (0.2-1.0); BUN/CREATININE RATIO 22.3 (14-18); CALCIUM 8.7 mg/dL (8.5-10.1); CREATININE 1.3 mg/dL (0.7-1.3); EST CRCL DRUG DOSING (CG) 30.33 mL/min; POTASSIUM,K 4.1 mEq/L (3.5-5.1); PROTEIN TOTAL,TP 5.8 g/dl (6.4-8.2)
== END 2024-10-28 09:45 | DRG 683 ==
LOC: JD.ED 10:38 → JD.ICU 14:13
PROVIDERS: ADMIT Family Medicine; ATTEND Family Medicine
DX: N17.9 Acute kidney failure, unspecified (principal); R42 Dizziness and giddiness; E87.20 Acidosis, unspecified; I10 Essential (primary) hypertension; J44.1 Chronic obstructive pulmonary disease with (acute) exacerbation; J44.9 Chronic obstructive pulmonary disease, unspecified; E11.9 Type 2 diabetes mellitus without complications; R65.10 Systemic inflammatory response syndrome (SIRS) of non-infectious origin without acute organ dysfunction; I13.0 Hypertensive heart and chronic kidney disease with heart failure and stage 1 through stage 4 chronic kidney disease, or unspecified chronic kidney disease; E86.1 Hypovolemia; Z88.0 Allergy status to penicillin; E86.0 Dehydration; E78.00 Pure hypercholesterolemia, unspecified; I50.9 Heart failure, unspecified; H54.7 Unspecified visual loss; H91.90 Unspecified hearing loss, unspecified ear; K59.09 Other constipation; J44.89 Other specified chronic obstructive pulmonary disease; G30.9 Alzheimer's disease, unspecified; F02.80 Dementia in other diseases classified elsewhere, unspecified severity, without behavioral disturbance, psychotic disturbance, mood disturbance, and anxiety; F15.90 Other stimulant use, unspecified, uncomplicated; G89.29 Other chronic pain; Z66 Do not resuscitate; N18.31 Chronic kidney disease, stage 3a; E11.22 Type 2 diabetes mellitus with diabetic chronic kidney disease; Z88.1 Allergy status to other antibiotic agents; Z79.1 Long term (current) use of non-steroidal anti-inflammatories (NSAID); Z79.51 Long term (current) use of inhaled steroids; Z79.82 Long term (current) use of aspirin; Z79.2 Long term (current) use of antibiotics; Z79.84 Long term (current) use of oral hypoglycemic drugs; Z79.899 Other long term (current) drug therapy; Z79.02 Long term (current) use of antithrombotics/antiplatelets; Z85.46 Personal history of malignant neoplasm of prostate; Z86.16 Personal history of COVID-19; Z98.890 Other specified postprocedural states; Z87.891 Personal history of nicotine dependence
CPT/HCPCS: 36415; 71046; 80053; 81003; 83605; 84484; 85007; 85027; 85610; 86140; 87040 ×2; 87428; 93005; J0696; J7030 ×2; 82947; 85025; 93010; 94640; 94762; 96361; 96374; 99223; 99232; 99238; 99285; 99285-25; A9270-GY; J1644; J7620-GY

== ENCOUNTER 2024-11-24 17:18 | Inpatient (IN) | payer MEDICARE, BC, MEDICAID ==
[2024-11-24 17:59] LABS: BASOPHILS ABSOLUTE AUTO 0.1 K/mm3 (0.0-0.2); BASOPHILS PERCENT AUTO 0.3 % (0.0-1.0); EOSINOPHILS PERCENT AUTO 0.2 % (0.0-6.0); HEMATOCRIT 37.8 % (42.0-52.0); HEMOGLOBIN 12.2 gm/dl (14.0-18.0); IMMATURE GRAN ABSOLUTE AUTO 0.11 K/mm3 (0.00-0.05); IMMATURE GRAN PERCENT AUTO 0.6 % (0.0-0.4); LYMPHOCYTES ABSOLUTE AUTO 1.3 K/mm3 (1.0-4.8); LYMPHOCYTES PERCENT AUTO 7.3 % (24.0-44.0); MEAN CORPUSCULAR HGB CONC 32.3 g/dl (32.0-36.0); MEAN CORPUSCULAR VOLUME 80.6 fl (83.0-99.0); MEAN PLATELET VOLUME 11.8 fl (9.4-12.4); MONOCYTES ABSOLUTE AUTO 1.5 K/mm3 (0.0-0.8); MONOCYTES PERCENT AUTO 8.1 % (0.0-8.0); NEUTROPHILS ABSOLUTE AUTO 15.4 K/mm3 (1.8-7.7); NEUTROPHILS PERCENT AUTO 83.5 % (41.0-71.0); PLATELET COUNT,PLT 248 K/mm3 (150-400); RED BLOOD CELL COUNT 4.69 M/mm3 (4.52-5.90); WHITE BLOOD CELL COUNT,WBC 18.39 K/mm3 (3.9-11.3)
[2024-11-24] MEDS: Sodium Chloride 0.9% 500 ML IV SCH (18:04)
[2024-11-24 18:17] LABS: A/G RATIO 0.9 (1-2); ALBUMIN 3.1 g/dl (3.4-5.0); ANION GAP 14.4 (5-15); BILIRUBIN TOTAL 0.5 mg/dL (0.2-1.0); BUN/CREATININE RATIO 16.7 (14-18); CREATININE 2.1 mg/dL (0.7-1.3); EST CRCL DRUG DOSING (CG) 18.42 mL/min; POTASSIUM,K 4.4 mEq/L (3.5-5.1); PROTEIN TOTAL,TP 6.6 g/dl (6.4-8.2)
[2024-11-24 18:36] LABS: INR 1.03; PROTHROMBIN TIME 10.9 SECONDS (9.7-12.0)
[2024-11-24 18:39] LABS: LACTIC ACID 2.2 mmol/L (0.4-2.0)
[2024-11-24] MEDS ORDERED: Sodium Chloride 0.9% 1,000 ML IV SCH (18:45)
[2024-11-24] MEDS: cefTRIAXone 2 GM in Sodium Chloride 0.9% 100 ML IV ONE (18:48)
[2024-11-24] MEDS: cefTRIAXone 2 GM Vial IVPUSH ONE (18:56)
[2024-11-24] MEDS: Lactated Ringers 1,000 ML IV ONE (19:27)
[2024-11-24 19:35] LABS: APPEARANCE,URINE CLEAR (Clear); BILIRUBIN,URINE NEGATIVE (Negative); COLOR,URINE YELLOW (Yellow); GLUCOSE,URINE 2+ (Negative); KETONES,URINE NEGATIVE (Negative); LEUKOCYTE ESTERASE,URINE NEGATIVE (Negative); NITRITE,URINE NEGATIVE (Negative); OCCULT BLOOD,URINE NEGATIVE (Negative); PH,URINE 5.5 (5.0-8.0); PROTEIN,URINE NEGATIVE (Negative); UROBILINOGEN,URINE 0.2 (0.2-1.0)
[2024-11-24] MEDS: Azithromycin 500 MG in Sodium Chloride 0.9% 250 ML IV ONE (20:43)
[2024-11-24] MEDS: Sodium Chloride 0.9% 10 ML Syringe FLUSH PRN (20:43)
[2024-11-24] MEDS: Lactated Ringers 500 ML IV ONE (20:44)
[2024-11-25 00:41] LABS: LACTIC ACID 1.3 mmol/L (0.4-2.0)
[2024-11-25] MEDS ORDERED: Aspirin 81 MG Tab.EC PO SCH (11:17)
[2024-11-25 11:22] LABS: BASOPHILS PERCENT AUTO 0.4 % (0.0-1.0); EOSINOPHILS ABSOLUTE AUTO 0.2 K/mm3 (0.0-0.4); EOSINOPHILS PERCENT AUTO 2.2 % (0.0-6.0); HEMATOCRIT 33.8 % (42.0-52.0); HEMOGLOBIN 10.7 gm/dl (14.0-18.0); IMMATURE GRAN ABSOLUTE AUTO 0.04 K/mm3 (0.00-0.05); IMMATURE GRAN PERCENT AUTO 0.4 % (0.0-0.4); LYMPHOCYTES ABSOLUTE AUTO 1.2 K/mm3 (1.0-4.8); LYMPHOCYTES PERCENT AUTO 11.5 % (24.0-44.0); MEAN CORPUSCULAR HGB CONC 31.7 g/dl (32.0-36.0); MEAN PLATELET VOLUME 11.6 fl (9.4-12.4); MONOCYTES PERCENT AUTO 10.2 % (0.0-8.0); NEUTROPHILS ABSOLUTE AUTO 7.6 K/mm3 (1.8-7.7); NEUTROPHILS PERCENT AUTO 75.3 % (41.0-71.0); PLATELET COUNT,PLT 205 K/mm3 (150-400); RED BLOOD CELL COUNT 4.12 M/mm3 (4.52-5.90); WHITE BLOOD CELL COUNT,WBC 10.06 K/mm3 (3.9-11.3)
[2024-11-25] MEDS: Albuterol/Ipratropium 3.0-0.5 MG/3 ML Neb Soln NEB SCH (11:38)
[2024-11-25 11:41] LABS: A/G RATIO 0.8 (1-2); ALBUMIN 2.5 g/dl (3.4-5.0); ANION GAP 8.8 (5-15); BILIRUBIN TOTAL 0.5 mg/dL (0.2-1.0); BUN/CREATININE RATIO 18.8 (14-18); CALCIUM 8.6 mg/dL (8.5-10.1); CREATININE 1.7 mg/dL (0.7-1.3); EST CRCL DRUG DOSING (CG) 22.75 mL/min; POTASSIUM,K 3.8 mEq/L (3.5-5.1); PROTEIN TOTAL,TP 5.7 g/dl (6.4-8.2)
[2024-11-25] MEDS: Pregabalin 75 MG Cap PO SCH (12:13)
[2024-11-25] MEDS: Sennosides/Docusate Sodium 50-8.6 MG Tab PO SCH (12:14)
[2024-11-25] MEDS: Mirabegron 25 MG Tab Extended Release PO SCH (12:14)
[2024-11-25] MEDS: Aspirin 81 MG Tab.EC PO SCH (12:15)
[2024-11-25] MEDS: Aspirin 81 MG Tab.Chew PO SCH (12:15)
[2024-11-25] MEDS: traMADol 50 MG Tab PO SCH (12:15)
[2024-11-25] MEDS: Cetirizine 10 MG Tab PO SCH (12:16)
[2024-11-25] MEDS: Pantoprazole 40 MG Tab.CR PO SCH (12:29)
[2024-11-25] MEDS ORDERED: Psyllium Husk Powder Sugar Free 5.85 GM Packet PO PRN (15:39)
[2024-11-25] MEDS ORDERED: Ondansetron 4 MG Tab.DIS PO PRN (15:39)
[2024-11-25] MEDS ORDERED: Sennosides 8.6 MG Tab PO PRN (15:39)
[2024-11-25] MEDS ORDERED: Nystatin Topical Powder 15 GM Bottle TOP PRN (15:39)
[2024-11-25] MEDS ORDERED: Meclizine 25 MG Tab PO PRN (15:39)
[2024-11-25] MEDS ORDERED: Acetaminophen 325 MG Tab PO PRN (15:39)
[2024-11-25] MEDS ORDERED: Calcium Carbonate 500 MG Tab.Chew PO PRN (15:39)
[2024-11-25] MEDS ORDERED: Melatonin 3 MG Tab PO PRN (15:48)
[2024-11-25] MEDS ORDERED: oxyCODONE 5 MG Tab PO PRN (15:48)
[2024-11-25] MEDS ORDERED: Albuterol/Ipratropium 3.0-0.5 MG/3 ML Neb Soln NEB PRN (15:55)
[2024-11-25] MEDS: Heparin Sodium 5,000 Units/ML Vial SUBCUT SCH (16:53)
[2024-11-25] MEDS: cefTRIAXone 1 GM Vial IVPUSH SCH (16:54)
[2024-11-25] MEDS: atorvaSTATin 20 MG Tab PO SCH (17:39)
[2024-11-25] MEDS: Tamsulosin 0.4 MG Cap.ER PO SCH (17:39)
[2024-11-25] MEDS: Carboxymethylcellulose Sodium 1% Ophth Gel 15 ML Bottle EYEBOTH SCH (22:11)
[2024-11-25] MEDS: Docusate Sodium 100 MG Cap PO SCH (22:11)
[2024-11-25] MEDS: Azithromycin 500 MG in Sodium Chloride 0.9% 250 ML IV SCH (22:12)
[2024-11-26 06:01] LABS: BASOPHILS PERCENT AUTO 0.4 % (0.0-1.0); EOSINOPHILS ABSOLUTE AUTO 0.4 K/mm3 (0.0-0.4); EOSINOPHILS PERCENT AUTO 4.2 % (0.0-6.0); HEMATOCRIT 34.1 % (42.0-52.0); HEMOGLOBIN 10.9 gm/dl (14.0-18.0); IMMATURE GRAN ABSOLUTE AUTO 0.04 K/mm3 (0.00-0.05); IMMATURE GRAN PERCENT AUTO 0.4 % (0.0-0.4); LYMPHOCYTES ABSOLUTE AUTO 1.1 K/mm3 (1.0-4.8); LYMPHOCYTES PERCENT AUTO 12.2 % (24.0-44.0); MEAN CORPUSCULAR HEMOGLOBIN 26.2 pg (28.0-32.0); MEAN PLATELET VOLUME 11.2 fl (9.4-12.4); MONOCYTES PERCENT AUTO 11.3 % (0.0-8.0); NEUTROPHILS ABSOLUTE AUTO 6.5 K/mm3 (1.8-7.7); NEUTROPHILS PERCENT AUTO 71.5 % (41.0-71.0); PLATELET COUNT,PLT 203 K/mm3 (150-400); RED BLOOD CELL COUNT 4.16 M/mm3 (4.52-5.90); WHITE BLOOD CELL COUNT,WBC 9.05 K/mm3 (3.9-11.3)
[2024-11-26] MEDS: Formoterol/Mometasone 200-5 MCG 8.8 GM Inhaler INH SCH (06:09)
[2024-11-26 06:32] LABS: A/G RATIO 0.8 (1-2); ALBUMIN 2.4 g/dl (3.4-5.0); ANION GAP 11.9 (5-15); BILIRUBIN TOTAL 0.4 mg/dL (0.2-1.0); BUN/CREATININE RATIO 19.3 (14-18); C-REACTIVE PROTEIN 8.21 mg/dL (<0.30); CALCIUM 8.6 mg/dL (8.5-10.1); CREATININE 1.4 mg/dL (0.7-1.3); EST CRCL DRUG DOSING (CG) 28.79 mL/min; MAGNESIUM 2.3 mg/dL (1.8-2.4); PHOSPHORUS 3.2 mg/dL (2.6-4.7); POTASSIUM,K 3.9 mEq/L (3.5-5.1); PROTEIN TOTAL,TP 5.6 g/dl (6.4-8.2)
[2024-11-26] MEDS: Empagliflozin 10 MG Tab PO SCH (08:08)
[2024-11-26] MEDS: Cholecalciferol (Vitamin D3) 25 MCG Tab PO SCH (08:09)
[2024-11-26] MEDS ORDERED: Aspirin 81 MG Tab.EC PO SCH (09:00)
[2024-11-26] MEDS ORDERED: Lactoperoxi/Gluc Oxid/Pot Thio 42 GM Tube MUCMEM PRN (09:00)
[2024-11-26] MEDS: Albuterol/Ipratropium 3.0-0.5 MG/3 ML Neb Soln NEB SCH ×2 (09:57→09:58)
[2024-11-26] MEDS: predniSONE 20 MG Tab PO SCH (10:12)
[2024-11-26] MEDS ORDERED: Pantoprazole 40 MG Tab.CR PO SCH (11:00)
[2024-11-26] MEDS: Insulin Lispro 100 Unit/ML 3 ML KwikPen SUBCUT SCH (17:03)
[2024-11-27] MEDS: Aspirin 81 MG Tab.EC PO SCH (08:31)
[2024-11-27 08:42] LABS: ANION GAP 13.1 (5-15); BUN/CREATININE RATIO 16.7 (14-18); CALCIUM 8.9 mg/dL (8.5-10.1); CREATININE 1.5 mg/dL (0.7-1.3); EST CRCL DRUG DOSING (CG) 26.87 mL/min; POTASSIUM,K 4.1 mEq/L (3.5-5.1)
== END 2024-11-27 14:03 | DRG 193 ==
LOC: SUPCPDRO 17:18 → JD.ED 17:18 → JD.MS 11-25 13:25
PROVIDERS: ADMIT Student in an Organized Health Care Education/Training Program; ATTEND Family Medicine
DX: I95.9 Hypotension, unspecified (principal); R74.02 Elevation of levels of lactic acid dehydrogenase [LDH]; D72.829 Elevated white blood cell count, unspecified; I10 Essential (primary) hypertension; J44.89 Other specified chronic obstructive pulmonary disease; J18.9 Pneumonia, unspecified organism; E11.9 Type 2 diabetes mellitus without complications; J96.01 Acute respiratory failure with hypoxia; J44.0 Chronic obstructive pulmonary disease with (acute) lower respiratory infection; J44.1 Chronic obstructive pulmonary disease with (acute) exacerbation; N17.9 Acute kidney failure, unspecified; N40.0 Benign prostatic hyperplasia without lower urinary tract symptoms; E11.51 Type 2 diabetes mellitus with diabetic peripheral angiopathy without gangrene; H91.90 Unspecified hearing loss, unspecified ear; K59.09 Other constipation; F15.90 Other stimulant use, unspecified, uncomplicated; I50.9 Heart failure, unspecified; F03.90 Unspecified dementia, unspecified severity, without behavioral disturbance, psychotic disturbance, mood disturbance, and anxiety; I11.0 Hypertensive heart disease with heart failure; K21.9 Gastro-esophageal reflux disease without esophagitis; E78.00 Pure hypercholesterolemia, unspecified; Z85.46 Personal history of malignant neoplasm of prostate; Z88.0 Allergy status to penicillin; Z79.51 Long term (current) use of inhaled steroids; Z79.82 Long term (current) use of aspirin; Z79.1 Long term (current) use of non-steroidal anti-inflammatories (NSAID); Z79.899 Other long term (current) drug therapy; Z79.02 Long term (current) use of antithrombotics/antiplatelets; Z86.16 Personal history of COVID-19; Z98.890 Other specified postprocedural states
CPT/HCPCS: 36415 ×2; 71045 ×2; 80053 ×2; 81003; 83605 ×3; 83880; 84484; 85025 ×2; 85610; 86140; 87040 ×2; 87428; 87641; 93005; 94640; 96361; 96365; 96375; 99285; A9270 ×7; J0456; J0696; J7040; J7120 ×2; 80048; 82947; 83735; 84100; 94761; 97116-GP; 97162-GP; 97530-GP; J1644; J1815; J7512; J7620-GY

== ENCOUNTER 2025-07-31 08:49 | Emergency (ER) | payer MEDICARE, BC, MEDICAID ==
[2025-07-31 09:11] LABS: MEAN PLATELET VOLUME 10.9 fl (9.4-12.4); NRBC ABSOLUTE 0.00 (0.00-0.02); NRBC PERCENT 0.0 % (0.0-0.2); PLATELET COUNT,PLT 234 K/mm3 (150-400); RED BLOOD CELL COUNT 6.16 M/mm3 (4.52-5.90); WHITE BLOOD CELL COUNT,WBC 11.18 K/mm3 (3.9-11.3)
[2025-07-31] MEDS: Sodium Chloride 0.9% 10 ML Syringe FLUSH PRN (09:16)
[2025-07-31 09:35] LABS: INR 1.02
[2025-07-31 09:42] LABS: LACTIC ACID 1.4 mmol/L (0.4-2.0)
[2025-07-31 09:46] LABS: BAND PERCENT MAN 0 % (0-10); BASOPHILS PERCENT MAN 0 (0.2-1.2); EOSINOPHILS PERCENT MAN 0 % (0.8-7.0); LYMPHOCYTES % ATYPICAL MANUAL 0 %; LYMPHOCYTES PERCENT MAN 18 % (20-40); MONOCYTES PERCENT MAN 6 % (2-10)
[2025-07-31 09:48] LABS: PLATELET COUNT ESTIMATE ADEQUATE
[2025-07-31 09:49] LABS: A/G RATIO 1.0 (1-2); ALANINE AMINOTRANSFERASE,ALT 27.0 U/L (16-63); ASPARTATE AMNIOTRANSFERASE,AST 8.0 U/L (15-37); BILIRUBIN TOTAL 0.4 mg/dL (0.2-1.0); BLOOD UREA NITROGEN,BUN 21.0 mg/dL (7-18); CARBON DIOXIDE,CO2 24.0 mEq/L (21-32); CHLORIDE,CL 103.0 mEq/L (98-107); CREATININE 1.1 mg/dL (0.7-1.3); EST CRCL DRUG DOSING (CG) 32.2 mL/min; ESTIMATED GFR 64.0 mL/min (>60); GLUCOSE RANDOM 164.0 mg/dL (70-99); POTASSIUM,K 4.0 mEq/L (3.5-5.1); PROTEIN TOTAL,TP 7.3 g/dl (6.4-8.2); SODIUM,NA 137.0 mEq/L (136-145); TROPONIN I HIGH SENSITIVITY 14.0 pg/mL (<=76)
[2025-07-31 10:29] LABS: APPEARANCE,URINE CLEAR (Clear); GLUCOSE,URINE 2+ (Negative); OCCULT BLOOD,URINE NEGATIVE (Negative)
== END 2025-07-31 11:50 | disposition home or self-care (01) ==
LOC: JD.ED 08:49
DX: J06.9 Acute upper respiratory infection, unspecified (principal); B97.89 Other viral agents as the cause of diseases classified elsewhere; I11.0 Hypertensive heart disease with heart failure; I50.9 Heart failure, unspecified; E11.9 Type 2 diabetes mellitus without complications; J45.909 Unspecified asthma, uncomplicated; Z88.0 Allergy status to penicillin; Z79.82 Long term (current) use of aspirin; Z79.899 Other long term (current) drug therapy; Z86.16 Personal history of COVID-19
CPT/HCPCS: 36415; 71045; 80053; 81003; 83605; 84484; 85007; 85027; 85610; 86140; 87040; 87428; 96360; 96361; 99285; J7030; 93010; 99283